=== PATIENT | male | born 1975 | race American Indian/Alaskan Native ===

== ENCOUNTER 2018-08-18 13:17 | Emergency (ER) | payer OTHER ==
[2018-08-18 14:14] VITALS: BP 110/78
--- NOTE | 2018-08-18 16:08 | Emergency Department Report ---
Upper Extremity - HPI Chief Complaint: Shoulder Injury Stated Complaint: R SHOULDER PAIN Time Seen by Provider: 08/18/18 15:49 Upper Extremity: Right Shoulder Occurred When: >5 Days (1.5 months) Symptoms: Yes Pain with Movement, No Deformity, No Limited Range of Movement, No Numbness, No Weakness, No Swelling, No Bruising/Ecchymosis, No Laceration or Abrasion Other History: 33-year-old -[place] male presents to the emergency room for right shoulder pain for 1.5 months. Patient denies any trauma. 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 Patient reports she is taking Goody powders and Tylenol. Patient reports his pain is worse when he tries to do drawing of the football or lifting right shoulder above.. Patient has a history of gastric ulcers as well as a gastric ulcer surgery. ED Review of Systems ROS: Stated complaint: R SHOULDER PAIN Other details as noted in HPI Constitutional: denies: chills, fever Eyes: denies: eye pain, eye discharge, vision change ENT: denies: ear pain, throat pain Respiratory: denies: cough, shortness of breath, wheezing Cardiovascular: denies: chest pain, palpitations Endocrine: no symptoms reported Gastrointestinal: denies: abdominal pain, nausea, diarrhea Genitourinary: denies: urgency, dysuria Musculoskeletal: denies: back pain, joint swelling, arthralgia Skin: denies: rash, lesions Neurological: denies: headache, weakness, paresthesias Psychiatric: denies: anxiety, depression Hematological/Lymphatic: denies: easy bleeding, easy bruising ED Past Medical Hx - Past Medical History Previous Medical History?: Yes Hx GERD: Yes Additional medical history: Right shoulder pain, Gastric ulcers - Surgical History Past Surgical History?: Yes Additional Surgical History: Gastric ulcer surgery - Social History Smoking Status: Current Every Day Smoker Substance Use Type: Alcohol, Marijuana - Medications Home Medications: Home Medications Medication Instructions Recorded Confirmed Last Taken Type Naproxen [EC-Naprosyn] 500 mg PO BID PRN #20 tablet. 08/18/18 Unknown Rx Upper Extremity Exam - Exam General: Vital signs noted. No distress. Alert and acting appropriately. Shoulder Exam: Yes Normal Range of Motion in Shoulder, No Shoulder Tenderness, No Clavicle Tenderness, No Shoulder Deformity, No AC Joint Tenderness Arm Exam: No Arm/Humerus Tenderness, No Arm Deformity Elbow: No Elbow Tenderness, No Normal Range of Motion in Elbow, No Elbow Deformity Forearm: No Forearm Tenderness, No Forearm Deformity, No Pain with Pronation, No Pain with Supination Wrist: Yes Normal ROM in Wrist, No Wrist Tenderness, No Wrist Deformity, No Snuffbox Tenderness, No Pain with Axial Thumb Compression Hand: Yes Normal ROM in Digit(s), No Hand Tenderness, No Hand Deformity, No Digit Tenderness, No Digit(s) Deformity, No Tendon Dysfunction CMS Exam: No Broken Skin, No Normal Distal Pulses, No Normal Capillary Refill, No Normal Distal Sensation ED Course Vital Signs 08/18/18 14:11 Temperature 97.8 F Pulse Rate 64 Respiratory 18 Rate Blood Pressure 110/78 O2 Sat by Pulse 99 Oximetry ED Medical Decision Making - Medical Decision Making 43-year-old male comes in for right shoulder pain with no injury or trauma. Discussed the patient will place him on enteric-coated naproxen twice a day and referral to Dr. Carias and [facility] orthopedic provider. Patient verbalized understanding. Critical care attestation.: If time is entered above; I have spent that time in minutes in the direct care of this critically ill patient, excluding procedure time. ED Disposition Clinical Impression: Acute pain of right shoulder Disposition: DC-01 TO HOME OR SELFCARE Is pt being admited?: No Does the pt Need Aspirin: No Condition: Stable Instructions: Shoulder Sprain (ED), Rotator Cuff Injury (ED) Additional Instructions: Take pain medication as prescribed. Follow-up with orthopedic provider I have listed their numbers below. Prescriptions: Naproxen [EC-Naprosyn] 500 mg PO BID PRN #20 tablet.dr ISAACS Reason: Pain , Severe (7-10) Referrals: JAMIE LEWIS MD [Primary Care Provider] - 3-5 Days NANO CARIAS MD [Staff Physician] - 3-5 Days [facility] [Provider Group] - 3-5 Days
== END 2018-08-18 16:33 | disposition home or self-care (01) ==
LOC: ED 13:17
DX: M25.511 Pain in right shoulder (principal); K21.9 Gastro-esophageal reflux disease without esophagitis; F17.200 Nicotine dependence, unspecified, uncomplicated; F12.10 Cannabis abuse, uncomplicated

== ENCOUNTER 2020-11-12 08:54 | Emergency (ER) | payer OTHER ==
[2020-11-12 09:04] VITALS: BP 132/90
[2020-11-12] MEDS ORDERED: ACETAMINOPHEN 500 MG TAB PO ONE (09:34)
--- NOTE | 2020-11-12 09:39 | Emergency Department Report ---
ED Extremity Problem HPI - General Chief complaint: Extremity Injury, Upper Stated complaint: RT WRIST PAIN FOREARM Time Seen by Provider: 11/12/20 09:15 Source: patient Mode of arrival: Ambulatory Limitations: No Limitations - History of Present Illness Initial comments: 45-year-old male presents to the ER today with complaints of right wrist pain and swelling. Patient states that his symptoms started about 1 week ago. Patient is unable to tell of any particular injury. He does admit to repetitive hand/wrist use at work. 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 He states that he started noticing the pain towards the end of his shift. He states since then the pain has gradually gotten worse and the area has become swollen. He denies any apparent bruising or redness to the wound. He states that the pain is worse with flexion and extension of his wrist. He has been taking ibuprofen without much wrist relief of his symptoms. He states that he did break his wrist when he was 28 years old and had to wear a cast for about 6 weeks. He denies any history of arthritis or gout. He reports no other symptoms at this time. MD Complaint: joint swelling, joint paint -: week(s) (1) - Related Data Previous Rx's Medication Instructions Recorded Last Taken Type Naproxen [EC-Naprosyn] 500 mg PO BID PRN #20 tablet. 08/18/18 Unknown Rx Ketorolac [Toradol] 10 mg PO Q6H PRN #20 tablet 11/12/20 Unknown Rx methylPREDNISolone [Medrol 4MG 4 mg PO DAILY #1 tab.ds.pk 11/12/20 Unknown Rx DOSEPAK (21 tabs)] Allergies Allergy/AdvReac Type Severity Reaction Status Date / Time No Known Allergies Allergy Unverified 08/18/18 14:14 ED Review of Systems ROS: Stated complaint: RT WRIST PAIN FOREARM Other details as noted in HPI ED Past Medical Hx - Past Medical History Previous Medical History?: Yes Hx GERD: Yes Additional medical history: Right shoulder pain, Gastric ulcers - Surgical History Past Surgical History?: Yes Additional Surgical History: Gastric ulcer surgery - Social History Smoking Status: Never Smoker Substance Use Type: Alcohol, Marijuana - Medications Home Medications: Home Medications Medication Instructions Recorded Confirmed Last Taken Type Naproxen [EC-Naprosyn] 500 mg PO BID PRN #20 tablet. 08/18/18 Unknown Rx Ketorolac [Toradol] 10 mg PO Q6H PRN #20 tablet 11/12/20 Unknown Rx methylPREDNISolone [Medrol 4MG 4 mg PO DAILY #1 tab.ds.pk 11/12/20 Unknown Rx DOSEPAK (21 tabs)] ED Physical Exam - General Limitations: No Limitations General appearance: alert, in no apparent distress - Head Head exam: Present: atraumatic, normocephalic, normal inspection - Eye Eye exam: Present: normal appearance, PERRL, EOMI Pupils: Present: normal accommodation - Neck Neck exam: Present: normal inspection, full ROM - Respiratory Respiratory exam: Present: normal lung sounds bilaterally. Absent: respiratory distress, wheezes, rales, rhonchi - Cardiovascular Cardiovascular Exam: Present: regular rate, normal rhythm, normal heart sounds - Expanded Upper Extremity Exam Right Forearm Wrist exam: Present: tenderness (Moderate tenderness to palpation to the distal radial aspect of the right forearm), swelling (Mild to moderate swelling noted to the distal radial aspect of the right forearm). Absent: abrasion, laceration, ecchymosis, deformity, crepidus, dislocation, erythema, tenderness over anatomical snuff box Hand Wrist exam: Present: tenderness (Moderate tenderness to palpation to the radial aspect of the right wrist), swelling (Mild to moderate swelling noted to the radial aspect of the right wrist). Absent: full ROM (Flexion, extension, ulnar and radial deviation mildly reduced secondary to pain), abrasion, laceration, ecchymosis, deformity, crepidus, dislocation, erythema, amputation, subungual hematoma Neuro motor exam: Present: wrist extension intact, thumb opposition intact, thumb IP flexion intact, thumb adduction intact, fingers 2-5 abduction intact Neurosensory exam: Present: radial nerve intact, ulnar nerve intact, median nerve intact Vascular: Present: normal capillary refill, radial pulse (Normal). Absent: vascular compromise - Neurological Exam Neurological exam: Present: alert, oriented X3, CN II-XII intact, normal gait - Psychiatric Psychiatric exam: Present: normal affect, normal mood - Skin Skin exam: Present: intact ED Course Vital Signs 11/12/20 09:01 Temperature 98.0 F Pulse Rate 59 L Respiratory 16 Rate Blood Pressure 132/90 O2 Sat by Pulse 100 Oximetry ED Medical Decision Making - Radiology Data Radiology results: report reviewed Patient: ESTIVEN WASHINGTON R#: [id number] : 1975 Acct:[id number] Age/Sex: 45 / M ADM Date: 11/12/20 Loc: ED Attending Dr: Ordering Physician: LATONYA GARCIA Date of Service: 11/12/20 Procedure(s): XR wrist 3+V RT Accession Number(s): [id number] cc: LATONYA GARCIA Fluoro Time In Minutes: Right wrist radiograph, 4 views HISTORY: Pain COMPARISON: None FINDINGS: 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 There is also mild osteoarthritis of the lunocapitate articulation. The scapholunate interval is not widened. No acute fracture or malalignment. No focal soft tissue abnormality. Signer Name: Татьяна Williamson MD Signed: 11/12/2020 9:58 AM Workstation Name: [id number] Transcribed By: JS Dictated By: ТАТЬЯНА WILLIAMSON MD Electronically Authenticated By: ТАТЬЯНА WILLIAMSON MD Signed Date/Time: 11/12/20957 DD/ 4 TD/TT: Critical care attestation.: If time is entered above; I have spent that time in minutes in the direct care of this critically ill patient, excluding procedure time. 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 Recommend that you take the ibuprofen and Medrol Dosepak as prescribed. I recommend limited use of your wrist over the next 2 to 3 days. You can apply ice to help with pain and swelling. I also recommend following up with analytics specialist listed on your discharge instructions in 1 to 2 weeks especially if your symptoms persist. Return to the ER if your symptoms changes or worsens in any way. Prescriptions: methylPREDNISolone [Medrol 4MG DOSEPAK (21 tabs)] 4 mg PO DAILY #1 tab.ds.pk Ketorolac [Toradol] 10 mg PO Q6H PRN #20 tablet PRN Reason: Pain Referrals: NANO CARIAS MD [Staff Physician] - 7-10 days ([employer]) Forms: Work/School Release Form(ED) Time of Disposition: 10:20 Print Language: THAI
--- NOTE | 2020-11-12 10:03 | XRay Report ---
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 There is also mild osteoarthritis of t he lunocapitate articulation. The scapholunate interval is not widened. No acute fracture or malalign ment. No focal soft tissue abnormality. Signer Name: Kody Williamson MD Signed: 11/12/2020 9:58 AM Workstation Name: [id number]
== END 2020-11-12 11:11 | disposition home or self-care (01) ==
LOC: ED 08:54
DX: M19.031 Primary osteoarthritis, right wrist (principal); K21.9 Gastro-esophageal reflux disease without esophagitis; F12.90 Cannabis use, unspecified, uncomplicated; Z98.890 Other specified postprocedural states; Z72.89 Other problems related to lifestyle; Z79.899 Other long term (current) drug therapy
CPT/HCPCS: 99283